=== PATIENT | female | born 1970 | race Two or more races ===

== ENCOUNTER 2021-12-13 16:29 | Emergency (ER) | payer OTHER ==
[~2021-12-13] VITALS: Ht 154.9 cm; Wt 68.0 kg
[2021-12-13] MEDS ORDERED: ASPIRINA (17:03)
== END 2021-12-13 19:41 | disposition home or self-care (01) ==
LOC: ER 16:29
DX: M54.50 Low back pain, unspecified (principal); M54.2 Cervicalgia